=== PATIENT | female | born 1980 | race Caucasian/White ===

== ENCOUNTER 2017-06-24 16:30 | Observation (INO) | payer MEDICAID, OTHER ==
[2017-06-24 16:57] VITALS: BMI 21.2
[2017-06-24] MEDS ORDERED: Sodium Chloride 0.9% 1,000 ML IV ONE (17:41)
--- NOTE | 2017-06-24 17:45 | C.PDOC ---
History Of Present Illness 37 yo female w/PMHx of epigastric pain, hx of H.Pyloric infection, completed abx treatment 2 weeks ago, was sent from clinic to ED today after was found hemoglobon level is low after blood work performed yesterday. Pt sts, " was called and told my Hb 7". Pt admits to feeling weak for past few weeks. Pt reports, her menstrual period is heavy for past few months " and was given medication for it in past without improvement". Otherwise, pt denies fever, chills, headache, dizziness, vertigo, CP, SOB, dyspnea, diaphoresis, palpitation , denies abd. pain at present time, N/V/D, denies hemateemsis, melena, hematoschezia, back pain, UTI sx, hematuria. Ambulate to Ed for evaluation, not in any apparent distress. Time Seen by Provider: 06/24/17 17:20 Chief Complaint (Nursing): Abnormal Labs History Per: Patient Past Medical History Reviewed: Historical Data, Nursing Documentation, Vital Signs Vital Signs: Last Vital Signs Temp 98.2 F 06/24/17 16:57 Pulse 80 06/24/17 16:57 Resp 16 06/24/17 16:57 BP 129/81 06/24/17 16:57 Pulse Ox 100 06/24/17 18:40 - Medical History PMH: GERD Surgical History: No Surg Hx Family History: States: No Known Family Hx - Social History Hx Alcohol Use: No Hx Substance Use: No - Immunization History Hx Tetanus Toxoid Vaccination: No Hx Influenza Vaccination: No Hx Pneumococcal Vaccination: No Review Of Systems Except As Marked, All Systems Reviewed And Found Negative. Constitutional: Positive for: Weakness. Negative for: Fever, Chills ENT: Negative for: Throat Pain, Throat Swelling Cardiovascular: Negative for: Chest Pain, Palpitations, Orthopnea, Edema, Light Headedness Respiratory: Negative for: Cough, Shortness of Breath, Hemoptysis Gastrointestinal: Negative for: Nausea, Vomiting, Abdominal Pain, Melena, Hematochezia, Hematemesis Genitourinary: Negative for: Hematuria Musculoskeletal: Negative for: Neck Pain, Back Pain Neurological: Negative for: Weakness, Numbness, Altered Mental Status Physical Exam - Physical Exam Appears: Well, Non-toxic, No Acute Distress Skin: Normal Color, Warm, No Rash Eye(s): bilateral: PERRL Nose: No Flaring, No Discharge Oral Mucosa: Moist, No Drooling Tongue: Normal Appearing Lips: Normal Appearing Throat: No Erythema, No Drooling Neck: Supple Chest: Symmetrical Cardiovascular: Rhythm Regular, No Murmur, No JVD, Other ((-) carotid bruits B/L ) Respiratory: No Decreased Breath Sounds, No Accessory Muscle Use, No Stridor, No Wheezing Gastrointestinal/Abdominal: Soft, No Tenderness, No Distention, No Guarding Back: No CVA Tenderness Extremity: No Normal ROM, No Pedal Edema Neurological/Psych: Oriented x3, Normal Speech ED Course And Treatment - Laboratory Results Result Diagrams: 06/24/17 17:33 06/24/17 17:33 O2 Sat by Pulse Oximetry: 100 Pulse Ox Interpretation: Normal Progress Note: Case discussed and sign out to : labs, Pelvic US, re-eval and dispo- pending. Disposition - Disposition Disposition Time: 18:56 Condition: STABLE Forms: [facility] (Slovak) - Clinical Impression Clinical Impression: Anemia Physician Patient Turnover Patient Signed Over To: Eloy Fitzpatrick Handoff Comments: blood work, pelvic US, re-eval and dispo-pending
[2017-06-24] MEDS ORDERED: Sodium Chloride 0.9% 1,000 ML ONE (17:49)
[2017-06-24 17:51] LABS: CHLORIDE 100 mmol/L (98-107); POTASSIUM 3.5 mmol/L (3.6-5.2); SODIUM 143 mmol/L (132-148)
[2017-06-24 17:54] LABS: BLOOD UREA NITROGEN 10 mg/dL (7-17); CALCIUM 8.9 mg/dl (8.6-10.4); CARBON DIOXIDE 26 mmol/L (22-30); GFR AFRICAN-AMERICAN > 60; GLUCOSE,RANDOM 105 mg/dL (65-105)
[2017-06-24 18:11] LABS: INR 1.1
[2017-06-24 18:29] LABS: BASO # 0.1 K/uL (0.0-0.2); BASO % 0.9 % (0.0-2.0); EOS # 0.1 K/uL (0.0-0.7); EOS % 2.4 % (0.0-4.0); HEMATOCRIT 23.8 % (34.0-47.0); LYMPH # 2.5 K/uL (1.0-4.3); MEAN CELL VOLUME 61.2 fL (81.0-99.0); MEAN CORPUSCULAR HEMOGLOBIN 18.4 pg (27.0-31.0); MONO # 0.3 K/uL (0.0-0.8); MONO % 5.4 % (0.0-10.0); NRBC % 0.1 % (0.0-2.0); RED CELL DISTRIBUTION WIDTH 18.6 % (11.5-14.5); WHITE BLOOD COUNT 6.1 K/uL (4.8-10.8)
--- NOTE | 2017-06-24 19:55 | US ---
EXAM: US Pelvis, Transvaginal EXAM DATE/TIME: 06/24/2017 5:41 PM CLINICAL HISTORY: 37 years old, female; Signs and symptoms; Other: Heavy menses; Additional info: Heavy menstrual bleeding, anemia; beta-hCG level not available; LMP 06/08/17 TECHNIQUE: Real-time transvaginal pelvic ultrasound (complete) with image documentation. Transvaginal imaging was used for better evaluation of the endometrium and adnexa. COMPARISON: There are no prior studies for comparison. FINDINGS: Uterus: Uterus measures approximately 8.6 x 4.2 x 5.5 cm. Myometrium is heterogeneous. Endometrium measures 19.7 mm in width. Central portion is heterogeneous. There are nabothian cysts in the cervix. Right ovary: Right ovary measures 3.73 x 3.13 x 2.96 cm. There is a 2.6 x 2.3 x 2.1 cm simple right ovarian cyst. There is an adjacent 1 x 0.9 x 1.2 cm hypoechoic nodular lesion, possibly hemorrhagic follicle. There is expected blood flow on Doppler imaging. Left ovary: Left ovary measures approximately 2.86 x 1.56 x 2.73 cm.There are multiple small follicles. There is intraovarian blood flow. Free fluid: There is trace fluid in the cul-de-sac. Bladder: Empty bladder which cannot be evaluated with this probe. IMPRESSION: Thickened heterogeneous endometrium; simple right ovarian cyst, probable small hemorrhagic follicle; no torsion
[2017-06-24 20:17] LABS: RBC URINE 1 /hpf (0-3); URINE BACTERIA FEW (<OCC); URINE BILIRUBIN NEGATIVE (NEGATIVE); URINE BLOOD NEGATIVE (NEGATIVE); URINE COLOR Yellow (YELLOW); URINE GLUCOSE (UA) NORMAL (Normal); URINE KETONE NEGATIVE (NEGATIVE); URINE LEUKOCYTE ESTERASE 1+ Leu/uL (Negative); URINE PROTEIN NEGATIVE (NEGATIVE); URINE UROBILINOGEN NORMAL mg/dL (0.2-1.0); WBC URINE 4 /hpf (0-5)
--- NOTE | 2017-06-24 22:43 | CP.PCM.HP ---
<Johan Giraldo - Last Filed: 06/24/17 23:36> History of Present Illness - History of Present Illness History of Present Illness: 37 yo F with a PMHx of H.Pylori infection and anemia, presented to the ED this evening after being referred by her PMD for low Hgb. The patient saw her PMD yesterday for follow-up due to a recent H.Pylori infection, after reviewing her blood work today the PMD called the patient and told her to come to the ED. The patient complains of fatigue, nausea, and occasional dizziness more pronounced when she get up from a chair. She also complains of intermittent upper left quadrant abdominal pain which is less severe since she completed her antibiotic course 2 weeks ago to treat her H.Pylor infection. She also complains of a 10 lb weight loss in the last 6 months. Her last menstrual period was 06/08/2017. She says she's always had heavy menses but in the last 4 months they've been heavier, lasting 6 days with average 4 pad usage. 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 absent: Chills, Fever, Headache - EENT Eyes: absent: Change in Vision Ears: absent: Ear Pain Nose/Mouth/Throat: absent: Nasal Congestion - Cardiovascular Cardiovascular: As Per HPI, Lightheadedness. absent: Chest Pain, Diaphoresis, Dyspnea on Exertion, Leg Edema, Palpitations - Respiratory Respiratory: absent: Cough, Dyspnea, Dyspnea on Exertion - Gastrointestinal Gastrointestinal: As Per HPI, Abdominal Pain, Nausea. absent: Constipation, Diarrhea, Vomiting Additional comments: intermittent abd pain in LUQ less severe since completing abx course to treat H.Pylori infx - Genitourinary Genitourinary: absent: Dysuria - Menstruation Menstruation: Menses 1-7 Days, Heavy Menses. absent: Currently Menstual, Spotting Between Cycles, Abnormal Vaginal Bleeding - Musculoskeletal Musculoskeletal: absent: Arthralgias, Back Pain, Muscle Weakness - Integumentary Integumentary: absent: Bleeding Lesions, Lesions Past Patient History - Past Social History Smoking Status: Never Smoked - PSYCHIATRIC Hx Substance Use: No - SURGICAL HISTORY Hx Surgeries: No - ANESTHESIA Hx Anesthesia: No Meds Allergies/Adverse Reactions: Allergies Allergy/AdvReac Type Severity Reaction Status Date / Time No Known Allergies Allergy Verified 06/24/17 16:52 Physical Exam - Constitutional Appears: Well, Non-toxic, No Acute Distress - Head Exam Head Exam: ATRAUMATIC, NORMAL INSPECTION - Eye Exam Eye Exam: EOMI Pupil Exam: PERRL - ENT Exam ENT Exam: Mucous Membranes Moist Additional comments: NO angular cheilosis NO atrophic glossitis - Neck Exam Neck exam: Positive for: Normal Inspection, Tenderness Additional comments: left sided neck tenderness to palpation - Respiratory Exam Respiratory Exam: Clear to Auscultation Bilateral, NORMAL BREATHING PATTERN. absent: Rales, Rhonchi, Wheezes - Cardiovascular Exam Cardiovascular Exam: REGULAR RHYTHM, +S1, +S2. absent: Bradycardia, Tachycardia , Irregular Rhythm, Systolic Murmur - GI/Abdominal Exam GI & Abdominal Exam: Normal Bowel Sounds, Soft. absent: Distended, Guarding, Mass, Organomegaly, Tenderness Additional comments: NO splenomegaly - Rectal Exam Rectal Exam: Deferred - Extremities Exam Extremities exam: Positive for: normal capillary refill, normal inspection, pedal pulses present. Negative for: pedal edema, tenderness - Back Exam Back exam: NORMAL INSPECTION - Neurological Exam Neurological exam: Alert, CN II-XII Intact, Oriented x3 - Psychiatric Exam Psychiatric exam: Normal Affect, Normal Mood Additional comments: NO pica - Skin Skin Exam: Dry, Intact, Normal Color, Warm Additional comments: NO koilonychia NO juandice Results - Vital Signs Recent Vital Signs: Last Vital Signs Temp 98.2 F 06/24/17 22:30 Pulse 73 06/24/17 22:30 Resp 18 06/24/17 19:30 BP 131/83 06/24/17 22:30 Pulse Ox 100 06/24/17 22:30 - Labs Result Diagrams: 06/24/17 17:33 06/24/17 17:33 Labs: Laboratory Results - last 24 hr 06/24/17 06/24/17 06/24/17 17:33 17:33 17:33 WBC 6.1 RBC 3.89 Hgb 7.1 L Hct 23.8 L MCV 61.2 L MCH 18.4 L MCHC 30.0 L RDW 18.6 H Plt Count 250 MPV 9.0 Neut % (Auto) 50.3 Lymph % (Auto) 41.0 H [place] % (Auto) 5.4 Eos % (Auto) 2.4 Baso % (Auto) 0.9 Neut # 3.1 Lymph # 2.5 [place] # 0.3 Eos # 0.1 Baso # 0.1 PT 11.9 INR 1.1 APTT 29 Sodium 143 Potassium 3.5 L Chloride 100 Carbon Dioxide 26 Anion Gap 21 H BUN 10 Creatinine 0.6 L Est GFR ( Amer) > 60 Est GFR (Non-Af Amer) > 60 Random Glucose 105 Calcium 8.9 Urine Color Urine Clarity Urine pH Ur Specific [place] Urine Protein Urine Glucose (UA) Urine Ketones Urine Blood Urine Nitrate Urine Bilirubin Urine Urobilinogen Ur Leukocyte Esterase Urine WBC (Auto) Urine RBC (Auto) Ur Squamous Epith Cells Amorphous Sediment Urine Bacteria Urine HCG, Qual Blood Type Antibody Screen 06/24/17 06/24/17 17:33 20:00 WBC RBC Hgb Hct MCV MCH MCHC RDW Plt Count MPV Neut % (Auto) Lymph % (Auto) [place] % (Auto) Eos % (Auto) Baso % (Auto) Neut # Lymph # [place] # Eos # Baso # PT INR APTT Sodium Potassium Chloride Carbon Dioxide Anion Gap BUN Creatinine Est GFR ( Amer) Est GFR (Non-Af Amer) Random Glucose Calcium Urine Color Yellow Urine Clarity Hazy Urine pH 8.0 Ur Specific [place] 1.013 Urine Protein Negative Urine Glucose (UA) Normal Urine Ketones Negative Urine Blood Negative Urine Nitrate Negative Urine Bilirubin Negative Urine Urobilinogen Normal Ur Leukocyte Esterase 1+ H Urine WBC (Auto) 4 Urine RBC (Auto) 1 Ur Squamous Epith Cells 16 H Amorphous Sediment Rare H Urine Bacteria Few H Urine HCG, Qual Negative Blood Type AB POSITIVE Antibody Screen Negative Assessment & Plan (1) Anemia Assessment and Plan: Hgb 7.1 on admission; symptomatic - fatigue, lightheadedness; possibly 2/2 to heavy menses; ENVIRONMENTAL COMPLIANCE INSPECTOR consulted, Dr Castano. 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 Assessment and Plan: (+) for HSV2 IG; equivocal results for HSV1 IG; (-) for HPV; results obtained from 06/07/17 report from another facility; con't treatment acyclovir 400mg po bid Status: Acute (3) Prophylactic measure Assessment and Plan: GI: pepcid 40mg po qd DVT: hold off AC due to low Hgb Diet: regular diet Status: Acute <Pop Rose - Last Filed: 06/25/17 06:25> Results - Vital Signs Recent Vital Signs: Last Vital Signs Temp 98 F 06/25/17 04:04 Pulse 78 06/25/17 04:04 Resp 20 06/25/17 04:04 BP 127/84 06/25/17 04:04 Pulse Ox 99 06/25/17 00:24 - Labs Result Diagrams: 06/24/17 17:33 06/24/17 17:33 Labs: Laboratory Results - last 24 hr 06/24/17 06/24/17 06/24/17 17:33 17:33 17:33 WBC 6.1 RBC 3.89 Hgb 7.1 L Hct 23.8 L MCV 61.2 L MCH 18.4 L MCHC 30.0 L RDW 18.6 H Plt Count 250 MPV 9.0 Neut % (Auto) 50.3 Lymph % (Auto) 41.0 H [place] % (Auto) 5.4 Eos % (Auto) 2.4 Baso % (Auto) 0.9 Neut # 3.1 Lymph # 2.5 [place] # 0.3 Eos # 0.1 Baso # 0.1 Retic Count PT 11.9 INR 1.1 APTT 29 Sodium 143 Potassium 3.5 L Chloride 100 Carbon Dioxide 26 Anion Gap 21 H BUN 10 Creatinine 0.6 L Est GFR ( Amer) > 60 Est GFR (Non-Af Amer) > 60 Random Glucose 105 Calcium 8.9 Iron TIBC Transferrin Ferritin Vitamin B12 Folate TSH 3rd Generation Urine Color Urine Clarity Urine pH Ur Specific [place] Urine Protein Urine Glucose (UA) Urine Ketones Urine Blood Urine Nitrate Urine Bilirubin Urine Urobilinogen Ur Leukocyte Esterase Urine WBC (Auto) Urine RBC (Auto) Ur Squamous Epith Cells Amorphous Sediment Urine Bacteria Urine HCG, Qual Blood Type Blood Type Confirm Antibody Screen 06/24/17 06/24/17 06/24/17 17:33 20:00 22:47 WBC RBC Hgb Hct MCV MCH MCHC RDW Plt Count MPV Neut % (Auto) Lymph % (Auto) [place] % (Auto) Eos % (Auto) Baso % (Auto) Neut # Lymph # [place] # Eos # Baso # Retic Count PT INR APTT Sodium Potassium Chloride Carbon Dioxide Anion Gap BUN Creatinine Est GFR ( Amer) Est GFR (Non-Af Amer) Random Glucose Calcium Iron 21 L TIBC 533 H Transferrin Ferritin Vitamin B12 Folate TSH 3rd Generation Urine Color Yellow Urine Clarity Hazy Urine pH 8.0 Ur Specific [place] 1.013 Urine Protein Negative Urine Glucose (UA) Normal Urine Ketones Negative Urine Blood Negative Urine Nitrate Negative Urine Bilirubin Negative Urine Urobilinogen Normal Ur Leukocyte Esterase 1+ H Urine WBC (Auto) 4 Urine RBC (Auto) 1 Ur Squamous Epith Cells 16 H Amorphous Sediment Rare H Urine Bacteria Few H Urine HCG, Qual Negative Blood Type AB POSITIVE Blood Type Confirm AB POSITIVE Antibody Screen Negative 06/24/17 06/24/17 06/24/17 22:47 22:47 22:47 WBC RBC Hgb Hct MCV MCH MCHC RDW Plt Count MPV Neut % (Auto) Lymph % (Auto) [place] % (Auto) Eos % (Auto) Baso % (Auto) Neut # Lymph # [place] # Eos # Baso # Retic Count 1.5 PT INR APTT Sodium Potassium Chloride Carbon Dioxide Anion Gap BUN Creatinine Est GFR ( Amer) Est GFR (Non-Af Amer) Random Glucose Calcium Iron TIBC Transferrin 395.49 H Ferritin 4.2 Vitamin B12 368 Folate 15.8 TSH 3rd Generation 2.49 Urine Color Urine Clarity Urine pH Ur Specific [place] Urine Protein Urine Glucose (UA) Urine Ketones Urine Blood Urine Nitrate Urine Bilirubin Urine Urobilinogen Ur Leukocyte Esterase Urine WBC (Auto) Urine RBC (Auto) Ur Squamous Epith Cells Amorphous Sediment Urine Bacteria Urine HCG, Qual Blood Type Blood Type Confirm Antibody Screen Assessment & Plan - Date & Time Date: 06/25/17 (I have seen and examined the patient. I agree with the findings and plan of care as documented by Dr. Giraldo. Patient with symptomatic anemia. May be secondary to heavy bleeding from fuel cell designer source. Consult to director of engineering. Check iron studies. Transfuse 1 unit PRBC. Monitor for acute changes.) Time: 06:23
[2017-06-24 23:10] LABS: IRON 21 ug/dL (37-170)
[2017-06-24 23:45] LABS: THYROID STIMULATING HORMONE 2.49 mIU/L (0.46-4.68)
[2017-06-25 00:19] LABS: FOLATE 15.8 ng/mL
[2017-06-25 00:25] VITALS: RESP 20
[2017-06-25 11:59] LABS: BASO % 0.5 % (0.0-2.0); EOS # 0.2 K/uL (0.0-0.7); EOS % 2.5 % (0.0-4.0); HEMATOCRIT 29.3 % (34.0-47.0); LYMPH # 2.4 K/uL (1.0-4.3); LYMPH % 34.9 % (20.0-40.0); MEAN CORPUSCULAR HEMOGLOBIN 20.6 pg (27.0-31.0); MEAN CORPUSCULAR HGB CONC 31.6 g/dL (33.0-37.0); MONO # 0.5 K/uL (0.0-0.8); WHITE BLOOD COUNT 6.9 K/uL (4.8-10.8)
[2017-06-25 12:03] LABS: MEAN CELL VOLUME 65.2 fL (81.0-99.0)
[2017-06-25 12:31] LABS: CHLORIDE 101 mmol/L (98-107)
[2017-06-25 12:32] LABS: POTASSIUM 3.8 mmol/L (3.6-5.2); SODIUM 138 mmol/L (132-148)
[2017-06-25 12:34] LABS: ALB/GLOB RATIO 1.2 (1.0-2.1); ALKALINE PHOSPHATASE 61 U/L (38-126); AST/SGOT 19 U/L (14-36); BILIRUBIN,TOTAL 0.5 mg/dL (0.2-1.3); BLOOD UREA NITROGEN 8 mg/dL (7-17); CARBON DIOXIDE 26 mmol/L (22-30); GFR AFRICAN-AMERICAN > 60; GLUCOSE,RANDOM 85 mg/dL (65-105); TOTAL PROTEIN 7.8 g/dL (6.3-8.3)
[2017-06-25 12:35] LABS: ALT/SGPT 24 U/L (9-52)
--- NOTE | 2017-06-25 12:36 | CP.PCM.DIS ---
<Saurav Montague - Last Filed: 06/25/17 13:07> Provider - Provider Date of Admission: 06/24/17 20:33 Attending physician: Pop Rose MD Consults: [employer] - Dr. Castano Time Spent in preparation of Discharge (in minutes): 20 Hospital Course - Lab Results Lab Results: Most Recent Lab Values WBC 6.9 K/uL (4.8-10.8) 06/25/17 11:45 RBC 4.50 Mil/uL (3.80-5.20) 06/25/17 11:45 Hgb 9.3 g/dL (11.0-16.0) L D 06/25/17 11:45 Hct 29.3 % (34.0-47.0) L 06/25/17 11:45 MCV 65.2 fL (81.0-99.0) L D 06/25/17 11:45 MCH 20.6 pg (27.0-31.0) L 06/25/17 11:45 MCHC 31.6 g/dL (33.0-37.0) L 06/25/17 11:45 RDW 24.0 % (11.5-14.5) H 06/25/17 11:45 Plt Count 240 K/uL (130-400) 06/25/17 11:45 MPV 9.0 fL (7.2-11.7) 06/25/17 11:45 Neut % (Auto) 55.1 % (50.0-75.0) 06/25/17 11:45 Lymph % (Auto) 34.9 % (20.0-40.0) 06/25/17 11:45 [place] % (Auto) 7.0 % (0.0-10.0) 06/25/17 11:45 Eos % (Auto) 2.5 % (0.0-4.0) 06/25/17 11:45 Baso % (Auto) 0.5 % (0.0-2.0) 06/25/17 11:45 Neut # 3.8 K/uL (1.8-7.0) 06/25/17 11:45 Lymph # 2.4 K/uL (1.0-4.3) 06/25/17 11:45 [place] # 0.5 K/uL (0.0-0.8) 06/25/17 11:45 Eos # 0.2 K/uL (0.0-0.7) 06/25/17 11:45 Baso # 0.0 K/uL (0.0-0.2) 06/25/17 11:45 Retic Count 1.5 % (0.5-1.5) 06/24/17 22:47 PT 11.9 SECONDS (9.7-12.2) 06/24/17 17:33 INR 1.1 06/24/17 17:33 APTT 29 SECONDS (21-34) 06/24/17 17:33 Sodium 143 mmol/L (132-148) 06/24/17 17:33 Potassium 3.5 mmol/L (3.6-5.2) L 06/24/17 17:33 Chloride 100 mmol/L (98-107) 06/24/17 17:33 Carbon Dioxide 26 mmol/L (22-30) 06/24/17 17:33 Anion Gap 21 (10-20) H 06/24/17 17:33 BUN 10 mg/dL (7-17) 06/24/17 17:33 Creatinine 0.6 mg/dL (0.7-1.2) L 06/24/17 17:33 Est GFR ( Amer) > 60 06/24/17 17:33 Est GFR (Non-Af Amer) > 60 06/24/17 17:33 Random Glucose 105 mg/dL (65-105) 06/24/17 17:33 Calcium 8.9 mg/dl (8.6-10.4) 06/24/17 17:33 Iron 21 ug/dL (37-170) L 06/24/17 22:47 TIBC 533 ug/dL (250-450) H 06/24/17 22:47 Transferrin 395.49 mg/dL (206-381) H 06/24/17 22:47 Ferritin 4.2 ng/mL 06/24/17 22:47 Vitamin B12 368 pg/mL (239-931) 06/24/17 22:47 Folate 15.8 ng/mL 06/24/17 22:47 TSH 3rd Generation 2.49 mIU/L (0.46-4.68) 06/24/17 22:47 Urine Color Yellow (YELLOW) 06/24/17 20:00 Urine Clarity Hazy (Clear) 06/24/17 20:00 Urine pH 8.0 (5.0-8.0) 06/24/17 20:00 Ur Specific [place] 1.013 (1.003-1.030) 06/24/17 20:00 Urine Protein Negative mg/dL (NEGATIVE) 06/24/17 20:00 Urine Glucose (UA) Normal mg/dL (Normal) 06/24/17 20:00 Urine Ketones Negative mg/dL (NEGATIVE) 06/24/17 20:00 Urine Blood Negative (NEGATIVE) 06/24/17 20:00 Urine Nitrate Negative (NEGATIVE) 06/24/17 20:00 Urine Bilirubin Negative (NEGATIVE) 06/24/17 20:00 Urine Urobilinogen Normal mg/dL (0.2-1.0) 06/24/17 20:00 Ur Leukocyte Esterase 1+ Frantz/uL (Negative) H 06/24/17 20:00 Urine WBC (Auto) 4 /hpf (0-5) 06/24/17 20:00 Urine RBC (Auto) 1 /hpf (0-3) 06/24/17 20:00 Ur Squamous Epith Cells 16 /hpf (0-5) H 06/24/17 20:00 Amorphous Sediment Rare /ul (<OCC) H 06/24/17 20:00 Urine Bacteria Few (<OCC) H 06/24/17 20:00 Urine HCG, Qual Negative (NEGATIVE) 06/24/17 20:00 Blood Type AB POSITIVE 06/24/17 17:33 Blood Type Confirm AB POSITIVE 06/24/17 17:33 Antibody Screen Negative 06/24/17 17:33 - Hospital Course Hospital Course: As per admission documentation 06/24/17, 37 yo F with a PMHx of H.Pylori infection and anemia, presented to the ED this evening after being referred by her PMD for low Hgb. The patient saw her PMD yesterday for follow-up due to a recent H.Pylori infection, after reviewing her blood work today the PMD called the patient and told her to come to the ED. The patient complains of fatigue, nausea, and occasional dizziness more pronounced when she get up from a chair. She also complains of intermittent upper left quadrant abdominal pain which is less severe since she completed her antibiotic course 2 weeks ago to treat her H.Pylor infection. She also complains of a 10 lb weight loss in the last 6 months. Her last menstrual period was 06/08/2017. She says she's always had heavy menses but in the last 4 months they've been heavier, lasting 6 days with average 4 pad usage. Hospital Course Patient was admitted for anemia, Hbg 7.1. [employer] consulted, Dr. Castano. Transvaginal US 06/24/17 showed thickened heterogeneous endometrium 19.7mm in width; simple right ovarian cyst, probable small hemorrhagic follicle; no torsion. Patient was transfused one unit of pRBCs. Repeat CBC showed of Hbg 9.3. Iron studies found: Iron 27, TIBC 533, Transferrin 395.49, Ferritin 4.2, B12 368, Folate 15.8, TSH 2.49. Patient was walked with Dr. Joe and resident, the patient denied any dizziness, palpitations, chest pain or shortness of breath during walk. Patient is being discharged home with instructions to follow up with her primary care physician, Dr. Villalobos. Patient is to follow up with her [employer] for further evaluation of menorrhagia. Patient is to continue to take her iron supplementation. - Date & Time of H&P Date of H&P: 06/24/17 Time of H&P: 22:30 Discharge Exam - Head Exam Head Exam: ATRAUMATIC, NORMAL INSPECTION - Eye Exam Eye Exam: EOMI, Normal appearance. absent: Scleral icterus - ENT Exam ENT Exam: Mucous Membranes Moist - Respiratory Exam Respiratory Exam: Clear to PA & Lateral, NORMAL BREATHING PATTERN, UNREMARKABLE. absent: Accessory Muscle Use, Rales, Rhonchi, Wheezes, Respiratory Distress - Cardiovascular Exam Cardiovascular Exam: REGULAR RHYTHM, +S1, +S2 - GI/Abdominal Exam GI & Abdominal Exam: Normal Bowel Sounds, Soft, Unremarkable. absent: Distended , Firm, Guarding, Rebound, Rigid, Tenderness - Extremities Exam Extremities exam: normal inspection, pedal pulses present - Back Exam Back exam: absent: CVA tenderness (L), CVA tenderness (R) - Neurological Exam Neurological exam: Alert, CN II-XII Intact, Normal Gait, Oriented x3 - Psychiatric Exam Psychiatric exam: Normal Affect, Normal Mood - Skin Skin Exam: Dry, Normal Color, Warm Discharge Plan - Follow Up Plan Condition: STABLE Disposition: HOME/ ROUTINE <Mike Joe - Last Filed: 06/25/17 14:03> Provider - Provider Date of Admission: 06/24/17 20:33 Attending physician: Pop Rose MD Hospital Course - Lab Results Lab Results: Most Recent Lab Values WBC 6.9 K/uL (4.8-10.8) 06/25/17 11:45 RBC 4.50 Mil/uL (3.80-5.20) 06/25/17 11:45 Hgb 9.3 g/dL (11.0-16.0) L D 06/25/17 11:45 Hct 29.3 % (34.0-47.0) L 06/25/17 11:45 MCV 65.2 fL (81.0-99.0) L D 06/25/17 11:45 MCH 20.6 pg (27.0-31.0) L 06/25/17 11:45 MCHC 31.6 g/dL (33.0-37.0) L 06/25/17 11:45 RDW 24.0 % (11.5-14.5) H 06/25/17 11:45 Plt Count 240 K/uL (130-400) 06/25/17 11:45 MPV 9.0 fL (7.2-11.7) 06/25/17 11:45 Neut % (Auto) 55.1 % (50.0-75.0) 06/25/17 11:45 Lymph % (Auto) 34.9 % (20.0-40.0) 06/25/17 11:45 [place] % (Auto) 7.0 % (0.0-10.0) 06/25/17 11:45 Eos % (Auto) 2.5 % (0.0-4.0) 06/25/17 11:45 Baso % (Auto) 0.5 % (0.0-2.0) 06/25/17 11:45 Neut # 3.8 K/uL (1.8-7.0) 06/25/17 11:45 Lymph # 2.4 K/uL (1.0-4.3) 06/25/17 11:45 [place] # 0.5 K/uL (0.0-0.8) 06/25/17 11:45 Eos # 0.2 K/uL (0.0-0.7) 06/25/17 11:45 Baso # 0.0 K/uL (0.0-0.2) 06/25/17 11:45 Differential Comment 06/25/17 11:45 Retic Count 1.5 % (0.5-1.5) 06/24/17 22:47 PT 11.9 SECONDS (9.7-12.2) 06/24/17 17:33 INR 1.1 06/24/17 17:33 APTT 29 SECONDS (21-34) 06/24/17 17:33 Sodium 138 mmol/L (132-148) 06/25/17 11:45 Potassium 3.8 mmol/L (3.6-5.2) 06/25/17 11:45 Chloride 101 mmol/L (98-107) 06/25/17 11:45 Carbon Dioxide 26 mmol/L (22-30) 06/25/17 11:45 Anion Gap 16 (10-20) 06/25/17 11:45 BUN 8 mg/dL (7-17) 06/25/17 11:45 Creatinine 0.5 mg/dL (0.7-1.2) L 06/25/17 11:45 Est GFR ( Amer) > 60 06/25/17 11:45 Est GFR (Non-Af Amer) > 60 06/25/17 11:45 Random Glucose 85 mg/dL (65-105) 06/25/17 11:45 Calcium 9.0 mg/dl (8.6-10.4) 06/25/17 11:45 Iron 21 ug/dL (37-170) L 06/24/17 22:47 TIBC 533 ug/dL (250-450) H 06/24/17 22:47 Transferrin 395.49 mg/dL (206-381) H 06/24/17 22:47 Ferritin 4.2 ng/mL 06/24/17 22:47 Total Bilirubin 0.5 mg/dL (0.2-1.3) 06/25/17 11:45 AST 19 U/L (14-36) 06/25/17 11:45 ALT 24 U/L (9-52) 06/25/17 11:45 Alkaline Phosphatase 61 U/L (38-126) 06/25/17 11:45 Total Protein 7.8 g/dL (6.3-8.3) 06/25/17 11:45 Albumin 4.3 g/dL (3.5-5.0) 06/25/17 11:45 Globulin 3.5 gm/dL (2.2-3.9) 06/25/17 11:45 Albumin/Globulin Ratio 1.2 (1.0-2.1) 06/25/17 11:45 Vitamin B12 368 pg/mL (239-931) 06/24/17 22:47 Folate 15.8 ng/mL 06/24/17 22:47 TSH 3rd Generation 2.49 mIU/L (0.46-4.68) 06/24/17 22:47 Urine Color Yellow (YELLOW) 06/24/17 20:00 Urine Clarity Hazy (Clear) 06/24/17 20:00 Urine pH 8.0 (5.0-8.0) 06/24/17 20:00 Ur Specific [place] 1.013 (1.003-1.030) 06/24/17 20:00 Urine Protein Negative mg/dL (NEGATIVE) 06/24/17 20:00 Urine Glucose (UA) Normal mg/dL (Normal) 06/24/17 20:00 Urine Ketones Negative mg/dL (NEGATIVE) 06/24/17 20:00 Urine Blood Negative (NEGATIVE) 06/24/17 20:00 Urine Nitrate Negative (NEGATIVE) 06/24/17 20:00 Urine Bilirubin Negative (NEGATIVE) 06/24/17 20:00 Urine Urobilinogen Normal mg/dL (0.2-1.0) 06/24/17 20:00 Ur Leukocyte Esterase 1+ Frantz/uL (Negative) H 06/24/17 20:00 Urine WBC (Auto) 4 /hpf (0-5) 06/24/17 20:00 Urine RBC (Auto) 1 /hpf (0-3) 06/24/17 20:00 Ur Squamous Epith Cells 16 /hpf (0-5) H 06/24/17 20:00 Amorphous Sediment Rare /ul (<OCC) H 06/24/17 20:00 Urine Bacteria Few (<OCC) H 06/24/17 20:00 Urine HCG, Qual Negative (NEGATIVE) 06/24/17 20:00 Blood Type AB POSITIVE 06/24/17 17:33 Blood Type Confirm AB POSITIVE 06/24/17 17:33 Antibody Screen Negative 06/24/17 17:33 Attending/Attestation - Attestation I have personally seen and examined this patient.: Yes I have fully participated in the care of the patient.: Yes I have reviewed all pertinent clinical information, including history, physical exam and plan: Yes Notes (Text): 06/25/17 13:54 Medical Attending: Patient was seen and examine by me. Family members present at bedside as well, patient was ok with this. She was already status post transfusion in the morning. CBC returned and was much improved. On exam we also had her walk with us in the hallway and she was able to do so without becoming short of breath or develop chest pain. She also denied having palpitations when she walked around. She also had a transvaginal ultrasound while here at [facility], it did not report fibroids. She will need to follow up with her PMD. We encouraged to try to take iron as well as a much better diet. She reports to us that she just does not eat that much thank you Mike Joe
[2017-06-25] MEDS ORDERED: Pneumococcal 23-Valent Vaccine IM ONE (14:45)
[2017-06-25] MEDS ORDERED: Influenza Vaccine 60 mcg/0.5 mL SYR (4YR UP) IM ONE (14:45)
[2017-06-25 16:29] VITALS: BP 123/77; PULSE 72; TEMP 98; O2SAT 98
== END 2017-06-25 17:33 | disposition home or self-care (01) ==
LOC: C.ER 16:30 → C.9E 20:33 → C.3T 22:03
PROVIDERS: ADMIT Family Medicine; ATTEND Family Medicine
DX: D64.9 Anemia, unspecified (principal); N92.0 Excessive and frequent menstruation with regular cycle; R53.83 Other fatigue
CPT/HCPCS: 36415; 36430; 76830; 80048; 80053; 81001; 82607; 82728; 82746; 83540; 84443; 84466; 84703; 85025; 85044; 85610; 85730; 86850; 86900; 86920; 90674; 96360; 99285; G0378; J7040; P9051

== ENCOUNTER 2017-08-25 10:42 | Emergency (ER) | payer OTHER ==
[2017-08-25 10:43] VITALS: BMI 24.6
[2017-08-25 10:48] VITALS: BP 144/84; PULSE 81; RESP 18; TEMP 97.9; O2SAT 100
[2017-08-25] MEDS ORDERED: Bacitracin Ointment 30 GM TUBE TOP STA (10:57)
[2017-08-25] MEDS ORDERED: Bacitracin 500 Units/gm Oint Foilpak UD ONE (11:08)
--- NOTE | 2017-08-25 14:32 | C.PDOC ---
History Of Present Illness 37 y/o female presents to ED with complaints of bilateral knee pain for 3 days. Patient states pain developed after running away from homeless person, tripping and falling landing on knees. Patient denies head injury, loc or any other complaints at this time. Chief Complaint (Nursing): Lower Extremity Problem/Injury History Per: Patient History/Exam Limitations: no limitations Onset/Duration Of Symptoms: Days Current Symptoms Are (Timing): Still Present Past Medical History Reviewed: Historical Data, Nursing Documentation, Vital Signs Vital Signs: Last Vital Signs Temp 97.9 F 08/25/17 10:46 Pulse 81 08/25/17 10:46 Resp 18 08/25/17 10:46 BP 144/84 08/25/17 10:46 Pulse Ox 100 08/25/17 14:33 - Medical History PMH: Anemia, GERD Surgical History: No Surg Hx Family History: States: No Known Family Hx - Social History Hx Alcohol Use: No Hx Substance Use: No - Immunization History Hx Tetanus Toxoid Vaccination: No Hx Influenza Vaccination: No Hx Pneumococcal Vaccination: No Review Of Systems Eyes: Negative for: Vision Change Musculoskeletal: Positive for: Leg Pain. Negative for: Foot Pain Skin: Negative for: Rash Neurological: Negative for: Weakness, Numbness Physical Exam - Physical Exam Appears: Non-toxic, No Acute Distress Skin: Warm, Dry, No Rash Head: Atraumatic, Normacephalic Eye(s): bilateral: Normal Inspection Oral Mucosa: Moist Neck: Supple Chest: Symmetrical Extremity: Capillary Refill (<2 seconds), No Deformity, No Swelling, Other ((+) abrasion to right knee) Extremity: Bilateral: Normal ROM Pulses: Left Dorsalis Pedis: Normal, Right Dorsalis Pedis: Normal Neurological/Psych: Oriented x3, Normal Motor, Normal Sensation Gait: Steady ED Course And Treatment O2 Sat by Pulse Oximetry: 100 (RA) Pulse Ox Interpretation: Normal Disposition - Disposition Referrals: [facility] Jannette Royal, [Non-Staff] - Disposition: HOME/ ROUTINE Disposition Time: 11:15 Condition: GOOD Additional Instructions: Thank you for letting us take care of you today. The emergency medical care you received today was directed at your acute symptoms. If you were prescribed any medication, please fill it and take as directed. It may take several days for your symptoms to resolve. Return to the Emergency Department if your symptoms worsen, do not improve, or if you have any other problems. Please contact your doctor or call one of the physicians/clinics you have been referred to that are listed on the Patient Visit Information form that is included in your discharge packet. Bring any paperwork you were given at discharge with you along with any medications you are taking to your follow up visit. Our treatment cannot replace ongoing medical care by a primary care provider (PCP) outside of the emergency department. Thank you for allowing the [facility] team to be part of your care today. Follow up with your doctor or the emergency room if you have any concerns. Prescriptions: Ibuprofen [Motrin] 600 mg PO Q6 PRN #20 tab PRN Reason: Pain, Moderate (4-7) Instructions: Knee Pain (ED) - Clinical Impression Clinical Impression: Knee abrasion - Scribe Statement The provider has reviewed the documentation as recorded by the Lino Gonzalez All medical record entries made by the Elkinibdevon were at my direction and personally dictated by me. I have reviewed the chart and agree that the record accurately reflects my personal performance of the history, physical exam, medical decision making, and the department course for this patient. I have also personally directed, reviewed, and agree with the discharge instructions and disposition.
== END 2017-08-25 11:26 | disposition home or self-care (01) ==
LOC: C.ER 10:42
DX: S80.211A Abrasion, right knee, initial encounter (principal); W01.0XXA Fall on same level from slipping, tripping and stumbling without subsequent striking against object, initial encounter

== ENCOUNTER 2017-11-10 11:23 | Emergency (ER) | payer OTHER, SELFPAY ==
[2017-11-10 11:24] VITALS: BMI 24.6
[2017-11-10 11:48] VITALS: BP 132/87; PULSE 83; RESP 18; TEMP 98; O2SAT 99
--- NOTE | 2017-11-10 13:24 | C.PDOC ---
History Of Present Illness 37 y/o female presents to ED with complaints of persistent dry cough for 1 week with associated chest pain when coughing. Patient states she had flu like symptoms last week that resolved but cough has been persistent which prompted visit to ED. Patient is also requesting refill for control pills. Patient denies fever, chills, nausea, vomiting or any other complaints at this time. Time Seen by Provider: 11/10/17 12:50 Chief Complaint (Nursing): Cough, Cold, Congestion History Per: Patient History/Exam Limitations: no limitations Onset/Duration Of Symptoms: Days Current Symptoms Are (Timing): Still Present Associated Symptoms: Cough Past Medical History Reviewed: Historical Data, Nursing Documentation, Vital Signs Vital Signs: Last Vital Signs Temp 98 F 11/10/17 11:45 Pulse 83 11/10/17 11:45 Resp 18 11/10/17 11:45 BP 132/87 11/10/17 11:45 Pulse Ox 99 11/10/17 13:40 - Medical History PMH: Anemia, GERD Surgical History: No Surg Hx Family History: States: No Known Family Hx - Social History Hx Alcohol Use: No Hx Substance Use: No - Immunization History Hx Tetanus Toxoid Vaccination: No Hx Influenza Vaccination: No Hx Pneumococcal Vaccination: No Review Of Systems Constitutional: Negative for: Fever, Chills Cardiovascular: Positive for: Chest Pain Respiratory: Positive for: Cough Gastrointestinal: Negative for: Nausea, Vomiting Skin: Negative for: Rash Physical Exam - Physical Exam Additional Physical Exam Comments: Constitutional: No acute distress. WDWN. Head: Normocephalic. Atraumatic. Eyes: PERRL. EOMI. ENT: Moist mucous membranes. Neck: Supple. Cardiovascular: Regular rate and rhythm. no wheezing, rales or rhonchi Chest: No tenderness. Respiratory: Clear to auscultation bilaterally. GI: Soft. Nontender. Nondistended. No rebound. No guarding. Skin: No rash. Neurologic: Alert, no focal deficit. ED Course And Treatment O2 Sat by Pulse Oximetry: 99 (RA) Pulse Ox Interpretation: Normal Medical Decision Making Medical Decision Making: flu like symptoms last week, now with residual dry cough and sore throat, d/c with cough medication Disposition Counseled Patient/Family Regarding: Diagnosis, Need For Followup, Rx Given - Disposition Disposition: HOME/ ROUTINE Disposition Time: 13:26 Condition: GOOD Additional Instructions: Please follow up with your doctor this week. Product Examiner for control medication refill. Prescriptions: guaiFENesin [guaifENESIN] 200 mg PO Q6 #120 [facility] Instructions: Viral Upper Respiratory Infection, Adult (DC) Forms: [facility] (Congolese), General Discharge Instructions - Clinical Impression Clinical Impression: Upper respiratory infection - PA / [employer] / Resident Statement MD/DO has reviewed & agrees with the documentation as recorded. - Scribe Statement The provider has reviewed the documentation as recorded by the Scribdevon Gonzalez All medical record entries made by the Lino were at my direction and personally dictated by me. I have reviewed the chart and agree that the record accurately reflects my personal performance of the history, physical exam, medical decision making, and the department course for this patient. I have also personally directed, reviewed, and agree with the discharge instructions and disposition.
== END 2017-11-10 13:43 | disposition home or self-care (01) ==
LOC: C.ER 11:23
DX: J06.9 Acute upper respiratory infection, unspecified (principal)

== ENCOUNTER 2018-01-11 10:25 | Emergency (ER) | payer SELFPAY ==
[2018-01-11 10:25] VITALS: BMI 24.6
[2018-01-11 11:13] LABS: HCG,QUALITATIVE URINE NEGATIVE (NEGATIVE)
[2018-01-11 11:25] LABS: SQUAMOUS EPITHIAL 10 /hpf (0-5); URINE BILIRUBIN NEGATIVE (NEGATIVE); URINE BLOOD NEGATIVE (NEGATIVE); URINE CLARITY Hazy (Clear); URINE COLOR Red (YELLOW); URINE GLUCOSE (UA) 3+ mg/dL (Normal); URINE LEUKOCYTE ESTERASE NEG Leu/uL (Negative); URINE PROTEIN NEGATIVE (NEGATIVE); URINE UROBILINOGEN NORMAL mg/dL (0.2-1.0)
--- NOTE | 2018-01-11 11:34 | C.PDOC ---
History Of Present Illness 37 year old female presents to the ED with for evaluation of sore throat , itchy eyes, cough, and generalized body aches which began two days ago. Patient reports pain is 8/10 in severity and notes that she has been taking over -the-counter medication without relief. She reports undocumented fever and states she feel stuffy. Patient denies nausea, vomiting, abdominal pain, shortness of breath, dysuria, and hematuria. HPI: Influenza Time Seen by Provider: 01/11/18 10:46 Chief Complaint: ENT Problem History Per: Patient Exam Limitations: no limitations Past Medical History Reviewed: Historical Data, Nursing Documentation, Vital Signs Vital Signs: Last Vital Signs Temp 98.7 F 01/11/18 10:29 Pulse 112 H 01/11/18 10:29 Resp 18 01/11/18 10:29 BP 125/84 01/11/18 10:29 Pulse Ox 99 01/11/18 10:29 - Medical History PMH: Anemia, GERD Surgical History: No Surg Hx Family History: States: Unknown Family Hx - Social History Hx Alcohol Use: No Hx Substance Use: No - Immunization History Hx Tetanus Toxoid Vaccination: No Hx Influenza Vaccination: No Hx Pneumococcal Vaccination: No Review Of Systems Constitutional: Positive for: Fever Eyes: Positive for: Other (itchy eyes ) ENT: Positive for: Throat Pain Respiratory: Positive for: Cough Gastrointestinal: Negative for: Nausea, Vomiting Genitourinary: Negative for: Dysuria, Hematuria Musculoskeletal: Positive for: Other (generalized body aches ) Physical Exam - Physical Exam Appears: Non-toxic, No Acute Distress Skin: Normal Color, Warm, Dry Head: Atraumatic, Normacephalic Eye(s): bilateral: Normal Inspection, Other (watery eyes ) Oral Mucosa: Moist Throat: Erythema (mild ), No Exudate Neck: Supple Chest: Symmetrical, No Deformity, No Tenderness Cardiovascular: Rhythm Regular, No Murmur Respiratory: Normal Breath Sounds, No Rales, No Rhonchi, No Wheezing Extremity: Normal ROM, Capillary Refill (less than 2 seconds ) Neurological/Psych: Oriented x3, Normal Speech, Normal Cognition Medical Decision Making Medical Decision Making: Progress: Urinalysis ordered and reviewed. Motrin PO, Tamiflu PO and Tylenol PO administered. On re-exam, patient is resting comfortably, showing no signs of distress and is stable for discharge. Patient is advised to follow-up with her PMD within 1-2 days for further evaluation and/or return to the ED if symptoms persist or worsen. - ECG O2 Sat by Pulse Oximetry: 99 Disposition Counseled Patient/Family Regarding: Diagnosis, Need For Followup, Rx Given - Disposition Referrals: [facility] [Outside] Disposition: HOME/ ROUTINE Disposition Time: 11:33 Condition: STABLE Additional Instructions: Follow up with your doctor or our clinic. Prescriptions: Ibuprofen [Motrin] 600 mg PO TID #15 tab Oseltamivir [Tamiflu] 1 cap PO BID #10 cap Instructions: Flu, Adult (DC) Forms: [employer] (Lao) - POA Present On Arrival: None - Clinical Impression Clinical Impression: Influenza-like illness - Scribe Statement The provider has reviewed the documentation as recorded by the Scribe (Una Headley) Provider Attestation: All medical record entries made by the Scribe were at my direction and personally dictated by me. I have reviewed the chart and agree that the record accurately reflects my personal performance of the history, physical exam, medical decision making, and the department course for this patient. I have also personally directed, reviewed, and agree with the discharge instructions and disposition.
[2018-01-11 11:48] VITALS: BP 130/88; PULSE 93; RESP 16; TEMP 98.1
[2018-01-11 13:56] VITALS: O2SAT 99
== END 2018-01-11 11:40 | disposition home or self-care (01) ==
LOC: C.ER 10:25
DX: J11.1 Influenza due to unidentified influenza virus with other respiratory manifestations (principal)

== ENCOUNTER 2018-01-19 09:12 | Emergency (ER) | payer SELFPAY ==
[2018-01-19 09:12] VITALS: BMI 24.6
[2018-01-19 10:24] LABS: BASO % 0.4 % (0.0-2.0); EOS # 0.1 K/uL (0.0-0.7); EOS % 1.2 % (0.0-4.0); HEMOGLOBIN 13.2 g/dL (11.0-16.0); LYMPH # 2.4 K/uL (1.0-4.3); LYMPH % 19.7 % (20.0-40.0); MEAN CELL VOLUME 87.2 fL (81.0-99.0); MEAN CORPUSCULAR HEMOGLOBIN 30.2 pg (27.0-31.0); MEAN CORPUSCULAR HGB CONC 34.6 g/dL (33.0-37.0); MEAN PLATELET VOLUME 7.3 fL (7.2-11.7); MONO # 0.6 K/uL (0.0-0.8); MONO % 4.9 % (0.0-10.0); NEUT # 8.9 K/uL (1.8-7.0); NEUT % 73.8 % (50.0-75.0); RBC 4.37 Mil/uL (3.80-5.20); RED CELL DISTRIBUTION WIDTH 12.3 % (11.5-14.5); WHITE BLOOD COUNT 12.1 K/uL (4.8-10.8)
[2018-01-19 10:35] LABS: ALB/GLOB RATIO 0.9 (1.0-2.1); ALBUMIN 3.6 g/dL (3.5-5.0); ALT/SGPT 30 U/L (9-52); AST/SGOT 31 U/L (14-36); BLOOD UREA NITROGEN 7 mg/dL (7-17); CALCIUM 8.4 mg/dl (8.6-10.4); GFR AFRICAN-AMERICAN > 60; GFR NON-AFRICAN AMERICAN > 60
--- NOTE | 2018-01-19 10:43 | RAD ---
PROCEDURE: Left Wrist Radiographs. HISTORY: L sided wrist pain, pinpoint tenderness denies trauma COMPARISON: None. FINDINGS: BONES: Normal. No fracture. JOINTS: Normal. No dislocation. SOFT TISSUES: Normal. OTHER FINDINGS: None. IMPRESSION: Normal left wrist radiographs.
--- NOTE | 2018-01-19 10:45 | RAD ---
HISTORY: Cough COMPARISON: No prior. TECHNIQUE: Chest PA and lateral FINDINGS: LUNGS: No active pulmonary disease. PLEURA: No significant pleural effusion identified. No pneumothorax apparent. CARDIOVASCULAR: Normal. OSSEOUS STRUCTURES: Minimal degenerative spondylosis of the thoracic spine. No Minor levoscoliosis centered in the lower thoracic region VISUALIZED UPPER ABDOMEN: Normal. OTHER FINDINGS: None. IMPRESSION: No active disease.
--- NOTE | 2018-01-19 10:56 | C.PDOC ---
History Of Present Illness 37 y/o female presents to the ER complaining of sore throat and myalgias. Patient states that she was diagnosed with flu on 01/11/18 and she was started on tamiflu. She completed the course of Tamiflu without relief. Patient denies having fever, chills, CP, SOB, and other complaints. Time Seen by Provider: 01/19/18 09:40 Chief Complaint (Nursing): Flu-like Symptoms History Per: Patient History/Exam Limitations: no limitations Onset/Duration Of Symptoms: Days Associated Symptoms: Sore Throat, Myalgias. denies: Fever, Chills, Nausea, Vomiting, Diarrhea Severity: Moderate Past Medical History Reviewed: Historical Data, Nursing Documentation, Vital Signs Vital Signs: Last Vital Signs Temp 98.2 F 01/19/18 11:28 Pulse 81 01/19/18 11:28 Resp 14 01/19/18 11:28 BP 135/85 01/19/18 11:28 Pulse Ox 98 01/19/18 13:19 - Medical History PMH: Anemia, GERD Surgical History: No Surg Hx Family History: States: No Known Family Hx - Social History Hx Alcohol Use: No Hx Substance Use: No - Immunization History Hx Tetanus Toxoid Vaccination: (unk) Hx Influenza Vaccination: Yes Hx Pneumococcal Vaccination: No Review Of Systems Constitutional: Negative for: Fever, Chills ENT: Positive for: Throat Pain Cardiovascular: Negative for: Chest Pain Respiratory: Negative for: Cough, Shortness of Breath Gastrointestinal: Negative for: Nausea, Vomiting, Abdominal Pain, Diarrhea Musculoskeletal: Positive for: Other (myalgias) Physical Exam - Physical Exam Appears: Non-toxic, No Acute Distress, Other (awake,alert, orientedx3) Skin: Normal Color, Warm, Other (4 discrete red nodules to lower extremities) Head: Atraumatic, Normacephalic Eye(s): bilateral: Normal Inspection Ear(s): Bilateral: Normal Nose: Discharge (clear rhinorrhea) Oral Mucosa: Moist Throat: Normal, No Erythema, No Exudate Neck: Supple Chest: Symmetrical Cardiovascular: Rhythm Regular Respiratory: Normal Breath Sounds, No Rales, No Rhonchi, No Wheezing Gastrointestinal/Abdominal: Normal Exam, Soft, No Tenderness Extremity: Normal ROM, Tenderness (tenderness to left wrist) Pulses: Left Radial: Normal, Right Radial: Normal ED Course And Treatment - Laboratory Results Result Diagrams: 01/19/18 10:16 01/19/18 10:16 O2 Sat by Pulse Oximetry: 98 (RA) Pulse Ox Interpretation: Normal - Other Rad CXR X-Ray: Viewed By Me, Read By Radiologist Interpretation: HISTORY: Cough. COMPARISON: No prior. TECHNIQUE: Chest PA and lateral. FINDINGS: LUNGS: No active pulmonary disease. PLEURA: No significant pleural effusion identified. No pneumothorax apparent. CARDIOVASCULAR: Normal. OSSEOUS STRUCTURES: Minimal degenerative spondylosis of the thoracic spine. No Minor levoscoliosis centered in the lower thoracic region. VISUALIZED UPPER ABDOMEN: Normal. OTHER FINDINGS: None. IMPRESSION : No active disease. Progress Note: Labs,Rapid Strep, and X-Ray- Left Wrist ordered. Patient given Motrin PO and Tylenol PO. Medical Decision Making Medical Decision Making: Patient completed course of tamiflu and has persistent viral syndrome. Labs grossly normal. Cxray negative. Patient has diffuse myalgias. Strep negative. No LAD consistent with EBV. Presentation concerning for erythema nodosum. Patient reports feeling better after motrin in the ED. She is well appearing with normal vitals. She was instructed on importance of follow-up and she was instructed to follow-up with [facility] if she did not have a PMD. She reports that she will return with any worsening symptoms. Disposition - Disposition Referrals: [facility] [Outside] Disposition: HOME/ ROUTINE Disposition Time: 11:58 Condition: GOOD Additional Instructions: Follow-up with PMD within 2 days. Motrin for pain. Return to ED if condition worsens. Instructions: Erythema Nodosum, Viral Upper Respiratory Infection, Adult (DC) Forms: [employer] (Croatian) - Clinical Impression Clinical Impression: Influenza-like illness - Scribe Statement The provider has reviewed the documentation as recorded by the Scribe Arnulfo David Provider Attestation: All medical record entries made by the Scribe were at my direction and personally dictated by me. I have reviewed the chart and agree that the record accurately reflects my personal performance of the history, physical exam, medical decision making, and the department course for this patient. I have also personally directed, reviewed, and agree with the discharge instructions and disposition.
[2018-01-19 11:29] VITALS: BP 135/85; PULSE 81; RESP 14; TEMP 98.2
[2018-01-19 11:53] VITALS: O2SAT 98
== END 2018-01-19 12:24 | disposition home or self-care (01) ==
LOC: C.ER 09:12
DX: J11.1 Influenza due to unidentified influenza virus with other respiratory manifestations (principal)

== ENCOUNTER 2018-09-24 10:30 | Emergency (ER) | payer SELFPAY ==
[2018-09-24 10:31] VITALS: BMI 24.6
[2018-09-24] MEDS ORDERED: Sodium Chloride 0.9% 1,000 ML IV ONE (10:57)
[2018-09-24 11:17] LABS: BASO % 0.5 % (0.0-2.0); EOS # 0.2 K/uL (0.0-0.7); EOS % 2.3 % (0.0-4.0); HEMOGLOBIN 13.1 g/dL (11.0-16.0); LYMPH # 2.5 K/uL (1.0-4.3); LYMPH % 31.6 % (20.0-40.0); MEAN CELL VOLUME 88.9 fL (81.0-99.0); MEAN CORPUSCULAR HEMOGLOBIN 30.9 pg (27.0-31.0); MEAN CORPUSCULAR HGB CONC 34.8 g/dL (33.0-37.0); MEAN PLATELET VOLUME 8.7 fL (7.2-11.7); MONO # 0.3 K/uL (0.0-0.8); MONO % 4.2 % (0.0-10.0); NEUT # 4.8 K/uL (1.8-7.0); NEUT % 61.4 % (50.0-75.0); NRBC % 0.1 % (0.0-2.0); RBC 4.24 Mil/uL (3.80-5.20); RED CELL DISTRIBUTION WIDTH 12.3 % (11.5-14.5); WHITE BLOOD COUNT 7.8 K/uL (4.8-10.8)
[2018-09-24 11:25] LABS: SQUAMOUS EPITHIAL 5 /hpf (0-5); URINE BACTERIA RARE (<OCC); URINE BILIRUBIN NEGATIVE (NEGATIVE); URINE BLOOD 3+ (NEGATIVE); URINE CLARITY Clear (Clear); URINE COLOR Yellow (YELLOW); URINE GLUCOSE (UA) NORMAL (Normal); URINE LEUKOCYTE ESTERASE 2+ Leu/uL (Negative); URINE PROTEIN 1+ mg/dL (NEGATIVE); URINE UROBILINOGEN NORMAL mg/dL (0.2-1.0)
[2018-09-24 11:26] LABS: HCG,QUALITATIVE URINE NEGATIVE (NEGATIVE)
[2018-09-24 11:38] LABS: ALB/GLOB RATIO 1.4 (1.0-2.1); ALBUMIN 4.5 g/dL (3.5-5.0); ALT/SGPT 55 U/L (9-52); AST/SGOT 52 U/L (14-36); BLOOD UREA NITROGEN 9 mg/dL (7-17); GFR NON-AFRICAN AMERICAN > 60
--- NOTE | 2018-09-24 11:42 | C.PDOC ---
History Of Present Illness 38 year old female presents to the ED for evaluation of heavy vaginal bleeding for 3 days. Patient reports last month she had a normal menstrual period and then developed a similar episode of bleeding 2 weeks later. She began bleeding again on 09/16 which she attributed to menses, however the bleeding has persisted. Patient reports having similar episode of heavy bleeding 1 year ago, and was found to be anemic. No prior history of transfusions. Patient also complains of feeling lethargic and tired. She denies any visual loss, dizziness, vomiting, abdominal pain, diarrhea, or bloody stool. Patient denies prior , states she is on control. Time Seen by Provider: 09/24/18 10:50 Chief Complaint (Nursing): Female Genitourinary History Per: Patient History/Exam Limitations: no limitations Onset/Duration Of Symptoms: Days Current Symptoms Are (Timing): Still Present Past Medical History Reviewed: Historical Data, Nursing Documentation, Vital Signs Vital Signs: Last Vital Signs Temp Pulse 102 H 09/24/18 10:34 Resp 18 09/24/18 10:34 BP 142/85 09/24/18 10:34 Pulse Ox 98 09/24/18 10:34 - Medical History PMH: Anemia, GERD Family History: States: Unknown Family Hx - Social History Hx Alcohol Use: No Hx Substance Use: No - Immunization History Hx Tetanus Toxoid Vaccination: (unk) Hx Influenza Vaccination: Yes Hx Pneumococcal Vaccination: No Review Of Systems Constitutional: Positive for: Other (Fatigue). Negative for: Fever, Chills, Sweats Eyes: Negative for: Vision Change Cardiovascular: Negative for: Chest Pain, Palpitations Respiratory: Negative for: Shortness of Breath Gastrointestinal: Negative for: Nausea, Vomiting, Abdominal Pain, Diarrhea Genitourinary: Positive for: Vaginal Bleeding. Negative for: Dysuria, Frequency, Vaginal Discharge Neurological: Negative for: Weakness, Numbness, Headache, Dizziness Physical Exam - Physical Exam Appears: Well, Non-toxic, No Acute Distress Skin: Warm, Dry, No Pale, No Rash Head: Atraumatic, Normacephalic Eye(s): bilateral: Normal Inspection (no conjunctival pallor) Oral Mucosa: Moist Neck: Normal ROM Chest: Symmetrical Cardiovascular: Rhythm Regular, No Murmur Respiratory: Normal Breath Sounds, No Rales, No Rhonchi, No Wheezing Gastrointestinal/Abdominal: Soft, No Tenderness, No Distention Extremity: Bilateral: Atraumatic, Normal Color And Temperature, Normal ROM Neurological/Psych: Oriented x3, Normal Speech Gait: Steady ED Course And Treatment - Laboratory Results Result Diagrams: 09/24/18 11:13 09/24/18 11:13 Lab Interpretation: No Acute Changes O2 Sat by Pulse Oximetry: 98 (RA) Pulse Ox Interpretation: Normal - CT Scan/US Pelvic Other Rad Studies (CT/US): Read By Radiologist, Radiology Report Reviewed CT/US Interpretation: Accession No. : [id number]. Patient Name / ID : [id number] / [id number]. Exam Date : 09/24/2018 12:53:15 ( Approved ). Study Com ment : Sex / Age : F / 38Y. Creator : Nuria Claros MD. Dictator : Nuria Claros MD. Wood Coater : Speech Pathology Supervisor : Nuria Claros MD. Approver2 : Report Date : 09/24/2018 13:48:29. My Comment : . Date of service: 09/24/2018. HISTORY: abnormal heavy vaginal bleeding. COMPARISON: Transvaginal pelvic ultrasound performed 06/24/17. TECHNIQUE: Real-time transabdominal pelvic ultrasound was performed. In addition a transvaginal pelvic ultrasound was necessary to better depict pelvic anatomy. FINDINGS: UTERUS: Measures 7.6 x 5.1 x 5.3 cm. Retroverted. ENDOMETRIUM: Measures 7 mm in diameter. CERVIX: Nabothian cysts. RIGHT OVARY: Measures 2.5 x 2.2 x 2.3 cm. Blood flow is demonstrated. 1.4 x 1.3 x 1.1 cm heterogeneous complex appearing cyst. Two punctate calcifications measuring approximately 1 mm. LEFT OVARY: Measures 2.8 x 1.9 x 2.3 cm. Blood flow is demonstrated. 1.5 x 1.4 x 1.4 cm heterogeneous complex appearing cyst. FREE FLUID: Pelvic free fluid, cul-de-sac. OTHER FINDINGS: None. IMPRESSION: Bilateral heterogeneous complex appearing ovarian cyst. Recommend 6 week ultrasound follow-up. Two punctate 1 mm calcifications noted at the right ovary. Small pelvic free fluid, cul-de-sac. This examination is predicated on a negative test. Correlate clinically. Medical Decision Making Medical Decision Making: Impression: Vaginal bleeding, rule out anemia Plan: --Blood work --Urinalysis --Urine preg --Pelvic ultrasound --IV fluids Progress: Labs reviewed and unremarkable, no anemia no leukocytosis, no electrolyte abnormality. US shows ovarian cyst, no fibroids. Patient remained well in no acute distress. She reports no pain on re-eval and has stable vital signs. I explained results to the patient and the plan for discharge. I recommend she follow up with frequency checker for further care and evaluation. Disposition Counseled Patient/Family Regarding: Diagnosis, Need For Followup - Disposition [facility] [Outside] Disposition: HOME/ ROUTINE Disposition Time: 14:12 Condition: STABLE Additional Instructions: Your labs were normal and ultrasound shows ovarian cyst It is important that you follow up with frequency checker for further care Instructions: Absent or Irregular Periods Forms: [employer] (Hungarian) - POA Present On Arrival: None - Clinical Impression Clinical Impression: Irregular menstrual bleeding - PA / ALLIGATOR TRAPPER / Resident Statement MD/DO has reviewed & agrees with the documentation as recorded. - Scribe Statement The provider has reviewed the documentation as recorded by the Lino Hardy All medical record entries made by the Elkinibdevon were at my direction and personally dictated by me. I have reviewed the chart and agree that the record accurately reflects my personal performance of the history, physical exam, medical decision making, and the department course for this patient. I have also personally directed, reviewed, and agree with the discharge instructions and disposition.
[2018-09-24 13:03] VITALS: RESP 16
--- NOTE | 2018-09-24 13:52 | US ---
Date of service: 09/24/2018 HISTORY: abnormal heavy vaginal bleeding. COMPARISON: Transvaginal pelvic ultrasound performed 06/24/17 TECHNIQUE: Real-time transabdominal pelvic ultrasound was performed. In addition a transvaginal pelvic ultrasound was necessary to better depict pelvic anatomy. FINDINGS: UTERUS: Measures 7.6 x 5.1 x 5.3 cm. Retroverted. ENDOMETRIUM: Measures 7 mm in diameter. CERVIX: Nabothian cysts. RIGHT OVARY: Measures 2.5 x 2.2 x 2.3 cm. Blood flow is demonstrated. 1.4 x 1.3 x 1.1 cm heterogeneous complex appearing cyst. Two punctate calcifications measuring approximately 1 mm. LEFT OVARY: Measures 2.8 x 1.9 x 2.3 cm. Blood flow is demonstrated. 1.5 x 1.4 x 1.4 cm heterogeneous complex appearing cyst. FREE FLUID: Pelvic free fluid, cul-de-sac. OTHER FINDINGS: None. IMPRESSION: Bilateral heterogeneous complex appearing ovarian cyst. Recommend 6 week ultrasound follow-up. Two punctate 1 mm calcifications noted at the right ovary. Small pelvic free fluid, cul-de-sac. This examination is predicated on a negative test. Correlate clinically.
[2018-09-24 14:56] VITALS: BP 136/92; PULSE 97; TEMP 98.4
[2018-09-24 16:04] VITALS: O2SAT 98
== END 2018-09-24 14:56 | disposition home or self-care (01) ==
LOC: C.ER 10:30
DX: N92.6 Irregular menstruation, unspecified (principal)
CPT/HCPCS: 76830; 76856; 80053; 81001; 84703; 85025; 96360; 99285; J7030

== ENCOUNTER 2018-10-21 09:09 | Outpatient (CLI) | payer SELFPAY | END 2018-10-21 09:10 | disposition home or self-care (01) | LOC: C.LAB 09:09 | DX: N92.0 Excessive and frequent menstruation with regular cycle (principal) ==

== ENCOUNTER 2018-11-16 09:27 | Outpatient (CLI) | payer SELFPAY | END 2018-11-16 09:28 | disposition home or self-care (01) | LOC: C.USIC 09:27 | DX: N92.6 Irregular menstruation, unspecified (principal) ==